=== PATIENT | male | born 1970 | race Caucasian/White ===

== ENCOUNTER 2020-08-17 14:09 | Inpatient (IN) ==
[2020-08-17] MEDS ORDERED: IOPAMIDOL 100 ML BOTTLE IV ONE (14:10)
--- NOTE | 2020-08-17 14:53 | Emergency Department Note ---
SOB HPI General Chief Complaint: Shortness of Breath/Dyspnea Stated Complaint: SOB Time Seen by Provider: 08/17/20 14:18 Source: family Mode of arrival: wheelchair Limitations: physical limitation and other (Hardly talking. Almost seems partially obtunded but severely fatigued might be the cause.) History of Present Illness HPI Narrative: Narrative: This pleasant 51-year-old is quiet. His Makayla accompanies him and answers most of the questions. Begin high-dose pain medication due to metastatic melanoma that has affected him in his lungs, liver, brain, abdomen. The pain in his abdomen has been quite significant and he has had recent dosage increases. He is on both a fentanyl patch as well as hydromorphone tablets. Shortness of breath is become worse in the past 2 days. He walked in. His current patch of fentanyl is 50. He was also tested for Covid 4 days ago where he was seen [facility] or prior to that, and was also diagnosed with possible mild infection in the lungs and put on Levaquin. He currently is on ipilimumab but has had only 1 injection he has previously been on targeted therapy with [employer], etc. his oncologist is Dr. Faust at [facility] in [place]. He no longer is on dexamethasone although did have a dose 4 days ago (or maybe 6 or 7) when he was ill hoping that it would improve his sense of wellbeing etc. It has not done much for him. He has had poor appetite x2 days as well. He is gotten a little bit of a protein shake. He has a history of sarcoidosis and this has inhibited some of the options to be in some of the studies. Original diagnosis of melanoma was in 2016, left calf. He had regional metastases at that time with a couple of lymph nodes positive in the left groin. Related Data Home Medications Medication Instructions Recorded Confirmed carvedilol 3.125 mg tablet 3.125 mg PO BID 08/15/20 08/17/20 dexamethasone 2 mg tablet 2 mg PO QDAY 08/15/20 08/17/20 ipilimumab 50 mg/10 mL (5 mg/mL) 50 mg IV Q3W 08/15/20 08/17/20 intravenous solution levofloxacin 500 mg tablet 500 mg PO Q24H 08/15/20 08/17/20 prochlorperazine maleate 10 mg 10 mg PO Q6H PRN 08/15/20 08/17/20 tablet Previous Rx's Medication Instructions Recorded fentanyl 25 mcg/hr transdermal 1 patch TRANSDERMA Q72H #10 each 08/15/20 patch hydromorphone 4 mg tablet 4 - 8 mg PO Q4H PRN #100 tab 08/15/20 lorazepam 1 mg tablet 1 - 2 mg PO QHS PRN #30 tab 08/15/20 ondansetron 8 mg disintegrating 8 mg PO .Q4-6H PRN #40 tab 08/15/20 tablet ketamine 50 mg/mL injection 50 mg INTRANASAL .COMPLEX PRN #10 08/16/20 solution ml Allergies Allergy/AdvReac Type Severity Reaction Status Date / Time No Known Drug Allergies Allergy Verified 08/15/20 08:10 Review of Systems ROS ROS Narrative: Narrative: No recent fevers chills or sweats Little bit of visual disturbance but this could be due to his medication changes. No sore throat or runny nose No specific cough No specific chest pain just the abdominal pain No diarrhea or constipation. No vomiting just the pain. No hematochezia No dysuria. Some lightheaded dizzy I believe. Usually is a very happy and upbeat type of a person but he, on the pain medications has become rather quiet and sedated. She answers most questions for him although he is able to respond to some intelligently. 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) Anxiety (Chronic) GERD (gastroesophageal reflux disease) (Chronic) Hypertension (Chronic) Melanoma (Chronic) Sarcoidosis (Acute) Medical History (Updated 08/17/20 @ 23:14 by Son Hernandez DO) Anxiety (Chronic) 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) GERD (gastroesophageal reflux disease) (Chronic) Hypertension (Chronic) Melanoma (Chronic) Sarcoidosis (Acute) Surgical History (Updated 08/15/20 @ 10:32 by Elvira Brand) History of surgery (Acute) wide excision of malignant melanoma right lower extremity with sentinel node biopsy x2 Family History (Updated 08/15/20 @ 10:33 by Elvira Brand) Diabetes Family/Other Leukemia Mother Melanoma Sister Hypertension Brother Father Social History Smoking Status: Never smoker Alcohol Intake Frequency: does not drink Substance Use: other Exam Narrative Narrative: Narrative: General Limitations: physical limitation and other (Hardly talking. Almost seems partially obtunded but severely fatigued might be the cause.) General appearance: Present alert (At least awake but not very interactive.), in no apparent distress, lethargic and malaise (Severe) Head Head: Present atraumatic and normocephalic Eye Eye: Present normal appearance and EOMI Neck Neck: Present normal inspection and trachea midline; Absent lymphadenopathy Chest Chest: Present symmetric chest wall rise Respiratory Respiratory: Present decreased breath sounds (Markedly decreased 2[address] on the right.); Absent respiratory distress, rales/crackles, wheezes, stridor and accessory muscle use Cardiovascular Cardiovascular: Present regular rate and tachycardia; Absent systolic murmur and diastolic murmur Adbominal Abdominal: Present soft, distention (Slight or mild) and tenderness (Generalized and diffuse, mild); Absent guarding, rebound and rigidity Extremities Extremities: Absent tenderness, pedal edema and pretibial edema Neurological Neurological: Present other (Difficult to assess due to patient's severe malaise and not wanting to talk. Extraocular muscles are intact. Muscles of facial expression are intact. Patient moves all extremities ambulated in.) Psychiatric Psychiatric: Present depressed, suicidal ideation, serious and poor eye contact (Quite a bit of the time.); Absent agitated and anxious Skin Skin: Present warm (WNL), dry and pallor; Absent cyanosis Course Vital Signs Vital signs: Vital Signs Temperature 96.8 F L 08/17/20 14:10 Pulse Rate 130 H 08/17/20 14:10 Respiratory Rate 22 08/17/20 14:10 Blood Pressure 146/96 08/17/20 14:10 Pulse Oximetry (%) 85 L 08/17/20 14:10 Temperature 96.8 F L 08/17/20 14:10 Pulse Rate 113 H 08/17/20 22:16 Respiratory Rate 14 08/17/20 21:31 Blood Pressure 130/88 08/17/20 22:16 Pulse Oximetry (%) 91 08/17/20 22:16 MDM MDM Narrative Medical decision making narrative: Narrative: 3:32 PM - interviewed and examined. Hypoxic, tachycardic, decreased breath sounds in the right with a history of pleural effusions due to his metastatic melanoma that include brain lung liver abdomen. Most likely this is recurring pleural effusion of significant amount. Because of his abdominal pain as well as the chest will be doing CT scan of the chest abdomen and pelvis. With contrast. Multiple labs including D-dimer also ordered. EKG etc. 4:25 PM - CT scan abdomen: 1. Disseminated hepatic metastases 2. Low density lesion consistent with splenic metastasis. This is increased 3. Malignant ascites. There are peritoneal metastases. There is omental thickening and caking 4. Osseous metastases involving the thoracic and lumbar spine. Osseous metastases in the iliac bones bilaterally. No compression fractures 5. Left inguinal adenopathy CT chest: 1. Large malignant right effusion. Partial right middle lobe and right lower lobe collapse 2. Bilateral hilar and mediastinal adenopathy, unchanged 4:52 PM - lactic acid 1.8. 5:05 PM - CMP with carbon dioxide slightly low at 20 and anion gap slightly elevated at 18.0. BUN is 32, creatinine 1.0. No old ones to compare. Albumin mildly low at 3.1. Troponin normal at less than 0.01. D-dimer and CBC still pending. 5:38 PM - CBC is markedly elevated at 29.4. No anemia. Platelet count is elevated at 441 which is the first time elevated. D-dimer is markedly elevated at 6.69. 5:58 PM - spoke with Dr. Faust, oncologist who reports that patient had dexamethasone he thinks 20 mg last week on Wednesday or Wednesday and thinks that patient's leukocytosis is more likely due to this than actual infectious. He recommends he be hospitalized and have 10 mg of dexamethasone daily and get pain medications under better control, treat underlying general conditions and discharge him in a few days and that he could help follow-up on him as an outpatient on Wednesday, 2 days from now. He says continuing on Levaquin could still be appropriate that he is not immune compromised. He currently is no longer on targeted oral therapy. He is on ipilimumab. Also, Makayla, patient's , pointed out that patient's azithromycin was never started but switched to Levaquin. Today would be about the third day of this treatment but he has not received this antibiotic today. This which was guided by oncology. 6:11 PM - spoke with Radiologist who believes that patient could handle a CTA of the chest to help rule out DVT and that he cannot rule out subsegmental type of multiple PEs as a cause of his tachycardia. I am ordering a CT angiogram of the chest. A liter of IV fluids is already been ordered. Levaquin ordered. CT angio of the chest did not show any significant subsegmental type of embolic phenomenon. 10:20 PM - spoke with Dr. Faustin who would like to see this patient himself be fore deciding circumstances considering that he sounds rather ill. 10:25 PM - spoke with patient's , Makayla, she and her have not discussed CODE STATUS. Dr. Faustin is present. 10:55 PM - Dr. Faustin will admit this patient. He is spoken with the with a DNR conclusion. Lab Data Result diagrams: 08/17/20 14:43 08/17/20 14:43 Labs: Lab Results 08/17/20 08/17/20 08/17/20 Range/Units 14:43 14:43 14:43 WBC 29.4 H (4.5-11.0) K/mcL RBC 5.10 (4.50-5.90) M/mcL Hgb 15.0 (13.5-16.5) g/dL Hct 45.9 (41.0-55.0) % MCV 90.0 (80.0-100.0) fL MCH 29.4 (26.0-34.0) pg MCHC 32.7 (31.0-36.0) g/dL RDW 12.9 (11.5-14.5) % Plt Count 441 H (140-440) K/mcL MPV 10.2 (7.4-10.4) fL Neut % (Auto) 89.0 H (38.0-78.0) % Lymph % (Auto) 2.8 L (15.0-49.0) % Hart % (Auto) 7.3 (1.0-12.0) % Eos % (Auto) 0.4 (0.0-7.0) % Baso % (Auto) 0.5 (0.0-2.0) % Lymph # (Auto) 0.81 L (1.50-4.80) K/mcL Hart # (Auto) 2.15 H (0.10-0.90) K/mcL Eos # (Auto) 0.12 (0.00-0.70) K/mcL Baso # (Auto) 0.14 (0.00-0.20) K/mcL Absolute Neutrophils 26.14 H (1.80-8.00) K/mcL D-Dimer 6.69 H (0.27-0.50) ug/mL Sodium 133 (133-145) mmol/L Potassium 5.1 (3.3-5.1) mmol/L Chloride 95 L (96-108) mmol/L Carbon Dioxide 20 L (22-30) mmol/L Anion Gap 18.0 H (8.0-16.0) BUN 32 H (6-20) mg/dL Creatinine 1.0 (0.7-1.2) mg/dL POC Creatinine 1.0 (0.6-1.2) mg/dL GFR Calculation 86 Glucose 124 H (70-105) mg/dL Calcium 8.0 L (8.6-10.4) mg/dL Magnesium 2.8 H (1.6-2.5) mg/dL Total Bilirubin 0.6 (0.1-1.0) mg/dL AST 25 (<40) U/L ALT 15 (<40) U/L Alkaline Phosphatase 141 H (39-117) U/L Lactate Dehydrogenase (135-225) U/L Troponin T (<0.03) ng/mL Total Protein 6.5 (5.9-8.4) gm/dL Albumin 3.1 L (3.2-5.2) gm/dL Globulin 3.4 (2.2-3.7) gm/dL Albumin/Globulin Ratio 0.9 L (1.0-2.3) Fluid Source Fluid Color Fluid Appearance Fluid Nucleated Cells /cumm Fluid Neutrophils % Fluid Lymphocytes % Fluid Monocytes % Fluid Glucose mg/dL Fluid Total Protein gm/dL Fluid LDH U/L SARS-CoV-2 (PCR) (Negative) 08/17/20 08/17/20 08/17/20 Range/Units 14:43 17:39 17:40 WBC (4.5-11.0) K/mcL RBC (4.50-5.90) M/mcL Hgb (13.5-16.5) g/dL Hct (41.0-55.0) % MCV (80.0-100.0) fL MCH (26.0-34.0) pg MCHC (31.0-36.0) g/dL RDW (11.5-14.5) % Plt Count (140-440) K/mcL MPV (7.4-10.4) fL Neut % (Auto) (38.0-78.0) % Lymph % (Auto) (15.0-49.0) % Hart % (Auto) (1.0-12.0) % Eos % (Auto) (0.0-7.0) % Baso % (Auto) (0.0-2.0) % Lymph # (Auto) (1.50-4.80) K/mcL Hart # (Auto) (0.10-0.90) K/mcL Eos # (Auto) (0.00-0.70) K/mcL Baso # (Auto) (0.00-0.20) K/mcL Absolute Neutrophils (1.80-8.00) K/mcL D-Dimer (0.27-0.50) ug/mL Sodium (133-145) mmol/L Potassium (3.3-5.1) mmol/L Chloride (96-108) mmol/L Carbon Dioxide (22-30) mmol/L Anion Gap (8.0-16.0) BUN (6-20) mg/dL Creatinine (0.7-1.2) mg/dL POC Creatinine (0.6-1.2) mg/dL GFR Calculation Glucose (70-105) mg/dL Calcium (8.6-10.4) mg/dL Magnesium (1.6-2.5) mg/dL Total Bilirubin (0.1-1.0) mg/dL AST (<40) U/L ALT (<40) U/L Alkaline Phosphatase (39-117) U/L Lactate Dehydrogenase 957 H (135-225) U/L Troponin T < 0.01 (<0.03) ng/mL Total Protein (5.9-8.4) gm/dL Albumin (3.2-5.2) gm/dL Globulin (2.2-3.7) gm/dL Albumin/Globulin Ratio (1.0-2.3) Fluid Source Fluid Color Fluid Appearance Fluid Nucleated Cells /cumm Fluid Neutrophils % Fluid Lymphocytes % Fluid Monocytes % Fluid Glucose mg/dL Fluid Total Protein 3.5 gm/dL Fluid LDH 1898 U/L SARS-CoV-2 (PCR) (Negative) 08/17/20 08/17/20 08/17/20 Range/Units 17:40 18:23 18:37 WBC (4.5-11.0) K/mcL RBC (4.50-5.90) M/mcL Hgb (13.5-16.5) g/dL Hct (41.0-55.0) % MCV (80.0-100.0) fL MCH (26.0-34.0) pg MCHC (31.0-36.0) g/dL RDW (11.5-14.5) % Plt Count (140-440) K/mcL MPV (7.4-10.4) fL Neut % (Auto) (38.0-78.0) % Lymph % (Auto) (15.0-49.0) % Hart % (Auto) (1.0-12.0) % Eos % (Auto) (0.0-7.0) % Baso % (Auto) (0.0-2.0) % Lymph # (Auto) (1.50-4.80) K/mcL Hart # (Auto) (0.10-0.90) K/mcL Eos # (Auto) (0.00-0.70) K/mcL Baso # (Auto) (0.00-0.20) K/mcL Absolute Neutrophils (1.80-8.00) K/mcL D-Dimer (0.27-0.50) ug/mL Sodium (133-145) mmol/L Potassium (3.3-5.1) mmol/L Chloride (96-108) mmol/L Carbon Dioxide (22-30) mmol/L Anion Gap (8.0-16.0) BUN (6-20) mg/dL Creatinine (0.7-1.2) mg/dL POC Creatinine (0.6-1.2) mg/dL GFR Calculation Glucose (70-105) mg/dL Calcium (8.6-10.4) mg/dL Magnesium (1.6-2.5) mg/dL Total Bilirubin (0.1-1.0) mg/dL AST (<40) U/L ALT (<40) U/L Alkaline Phosphatase (39-117) U/L Lactate Dehydrogenase (135-225) U/L Troponin T (<0.03) ng/mL Total Protein (5.9-8.4) gm/dL Albumin (3.2-5.2) gm/dL Globulin (2.2-3.7) gm/dL Albumin/Globulin Ratio (1.0-2.3) Fluid Source Pleural Fluid Color [place] Fluid Appearance Clear Fluid Nucleated Cells 615 /cumm Fluid Neutrophils 34 % Fluid Lymphocytes 8 % Fluid Monocytes 58 % Fluid Glucose 101 mg/dL Fluid Total Protein gm/dL Fluid LDH U/L SARS-CoV-2 (PCR) Negative (Negative) Discharge Plan Patient/Caregiver Discharge Instructions Pt seen by [employer] only: No Clinical Impression: Pleural effusion, Sinus tachycardia, Weakness generalized, Medication side effect, Hypoxia, DNR (do not resuscitate) Elevated WBC count Qualifiers: Leukocytosis type: unspecified Qualified Code(s): D72.829 - Elevated white b lood cell count, unspecified Patient Disposition: Xfer As Inpt ([facility]) Condition: Fair Follow up with: Tania aFy MD [Physician] - No,PCP [Primary Care Provider] - Prescriptions: No Action ketamine 50 mg/mL solution 50 mg INTRANASAL .COMPLEX PRN (Reason: pain) Qty: 10 RF: 2 Yervoy 50 mg/10 mL (5 mg/mL) solution 50 mg IV Q3W RF: 0 prochlorperazine maleate 10 mg tablet 10 mg PO Q6H PRN (Reason: other) RF: 0 levofloxacin 500 mg tablet 500 mg PO Q24H RF: 0 dexamethasone 2 mg tablet 2 mg PO QDAY RF: 0 carvedilol 3.125 mg tablet 3.125 mg PO BID RF: 0 ondansetron 8 mg tablet,disintegrating 8 mg PO .Q4-6H PRN (Reason: nausea and vomiting) Qty: 40 RF: 3 fentanyl [Duragesic] 25 mcg/hr patch 72 hour 1 patch TRANSDERMA Q72H Qty: 10 RF: 0 hydromorphone [Dilaudid] 4 mg tablet 4 - 8 mg PO Q4H PRN (Reason: pain) Qty: 100 RF: 0 lorazepam [Ativan] 1 mg tablet 1 - 2 mg PO QHS PRN (Reason: insomnia) Qty: 30 RF: 3
--- NOTE | 2020-08-17 15:47 | Cat Scan Report ---
INDICATION: dyspnea, recurrent pl effus, decrsd breath s R history of malignant melanoma COMPARISON: Previous chest x-ray dated 04/24/2020. Previous PET CT scan dated 04/24/2020. Previous CT scans dated 04/09/2020, 10/18/2019 TECHNIQUE: Axial contrast enhanced images through the chest. Sagittally and coronally reformatted images. MIP reformatted images. 90ml Isovue 370 injected intravenously. FINDINGS: Patient has a history of disseminated metastatic melanoma and large malignant right pleural effusion Lungs:6 mm noncalcified left upper lobe nodule, image 38. This is unchanged. There are small pleural-based nodular densities which appear stable. Findings may be due to mild volume loss but pleural metastases are possible. There is no significant left pleural effusion. Right upper lobe is aerated. There is collapse of the right lower lobe and portion of the right middle lobe. Mediastinum, vascular:There is mediastinal lymphadenopathy. There is mild pretracheal adenopathy. There are prominent perivascular lymph nodes. There is bilateral hilar adenopathy, left worse than right. There is a subcarinal density consistent with a pathologic node. Findings are essentially unchanged. Heart:No cardiomegaly. No pericardial effusion. No significant coronary artery calcification Pleura:Large right pleural effusion. This is a recurrent effusion. There is extensive right pleural-based abnormality consistent with pleural carcinomatosis and malignant effusion. Axilla, supraclavicular regions, chest wall:No pathologic axillary or supraclavicular adenopathy. Musculoskeletal:No thoracic compression fracture or lytic lesion. No sternal or rib lesion Upper Abdomen:Abdominal and pelvic CT scans were performed and will be described in a separate dictation IMPRESSION: 1. Large malignant right effusion. Partial right middle lobe and right lower lobe collapse 2. Bilateral hilar and mediastinal adenopathy, unchanged The exam was performed using radiation dose optimization techniques including, but not limited to, automated exposure control, adjustment of the mA and/or kV according to patient size and use of iterative reconstruction technique. Interpreted and Authenticated by: Calos Martinez 08/17/20
--- NOTE | 2020-08-17 16:02 | Cat Scan Report ---
INDICATION: severe abd pain; mets melanoma COMPARISON: Previous PET/CT scan dated 07/25/2020. Previous abdominal and pelvic CT scan dated 04/23/2020 TECHNIQUE: Axial images were obtained through the abdomen and pelvis. Sagittally and coronally reformatted images. 90 mL Isovue 370 injected intravenously. FINDINGS: Lung bases:Malignant right pleural effusion with right lower lobe collapse Liver:Disseminated hepatic metastases. No definite interval change Gallbladder, bilary:There is at least one calcified gallstone. No dilated bile ducts Spleen:10 mm low-density lesion in the central spleen. This is larger than on previous examination and is consistent with a splenic metastasis. Pancreas:No pancreatic mass. No peripancreatic abnormality Adrenal glands:Negative Kidneys, ureters, bladder:No solid or cystic renal mass. No hydronephrosis. No obstructing calculi. There is no hydroureter. No ureteral stone No bladder calculi or detectable mass Gastrointestinal:No detectable colonic mass. There is no diverticulitis. Small bowel is negative. No mechanical small bowel obstruction. Moderately distended fluid-filled stomach Appendix: The appendix is negative Vascular:Negative abdominal aorta. Superior mesenteric artery and celiac trunk are normal. Normal opacification of the inferior mesenteric artery Lymphatic:No retroperitoneal adenopathy. There are multiple mesenteric lymph nodes which are of indeterminate significance. There are enlarged left inguinal lymph nodes Mesentery, peritoneum: There is moderate ascites. Appearance is consistent with malignant ascites. There are peritoneal masses. There is extensive omental thickening and caking. Reproductive:Prostate is not significantly enlarged Musculoskeletal:Heterogeneous trabecula with areas of lytic and sclerotic metastases in the thoracic and lumbar spine. No pathologic compression fracture. Probable metastases to both iliac bones. There is a sclerotic focus in the left pubic bone. No abdominal wall or inguinal hernia IMPRESSION: 1. Disseminated hepatic metastases 2. Low density lesion consistent with splenic metastasis. This is increased 3. Malignant ascites. There are peritoneal metastases. There is omental thickening and caking 4. Osseous metastases involving the thoracic and lumbar spine. Osseous metastases in the iliac bones bilaterally. No compression fractures 5. Left inguinal adenopathy The exam was performed using radiation dose optimization techniques including, but not limited to, automated exposure control, adjustment of the mA and/or kV according to patient size and use of iterative reconstruction technique. Interpreted and Authenticated by: Calos Martinez 08/17/20
[2020-08-17 16:56] LABS: ALT/SGPT 15 U/L (<40); AST/SGOT 25 U/L (<40); Albumin 3.1 gm/dL (3.2-5.2); Albumin/Globulin Ratio 0.9 (1.0-2.3); Alkaline Phosphatase 141 U/L (39-117); Bilirubin,Total 0.6 mg/dL (0.1-1.0); Blood Urea Nitrogen 32 mg/dL (6-20); Carbon Dioxide 20 mmol/L (22-30); Chloride 95 mmol/L (96-108); Globulin 3.4 gm/dL (2.2-3.7); Glomerular Filtration Rate 86; Glucose 124 mg/dL (70-105)
[2020-08-17 17:06] LABS: Basophils # (Auto) 0.14 K/mcL (0.00-0.20); Basophils % (Auto) 0.5 % (0.0-2.0); Eosinophils # (Auto) 0.12 K/mcL (0.00-0.70); Eosinophils % (Auto) 0.4 % (0.0-7.0); Hematocrit 45.9 % (41.0-55.0); Lymphocytes # (Auto) 0.81 K/mcL (1.50-4.80); Lymphocytes % (Auto) 2.8 % (15.0-49.0); Mean Corpuscular HGB Conc 32.7 g/dL (31.0-36.0); Mean Platelet Volume 10.2 fL (7.4-10.4); Monocytes # (Auto) 2.15 K/mcL (0.10-0.90); Monocytes % (Auto) 7.3 % (1.0-12.0); Platelet Count 441 K/mcL (140-440); Red Cell Distribution Width 12.9 % (11.5-14.5); WBC 29.4 K/mcL (4.5-11.0)
[2020-08-17] MEDS ORDERED: 0.9 % SODIUM CHLORIDE 1,000 ML IV ONE (17:34)
--- NOTE | 2020-08-17 17:56 | Ultrasound Report ---
INDICATION: large right pleural effusion TECHNIQUE: Informed consent was obtained. Discussed the procedure as well as potential risks complications including risk of pneumothorax. Large right pleural effusion was localized with ultrasound. Routine ChloraPrep skin cleansing. 1% lidocaine was injected. 6 Romanian safety centesis set was utilized. 1.7 L of frankly bloody fluid was removed. Postprocedure chest x-ray is pending IMPRESSION: 1. Ultrasound-guided right thoracentesis 2. 1.7 L of bloody fluid removed Interpreted and Authenticated by: Calos Martinez 08/17/20
[2020-08-17] MEDS ORDERED: LEVOFLOXACIN 500 MG/100 ML BAG IV ONE (18:16)
--- NOTE | 2020-08-17 18:39 | XRay Report ---
INDICATION: Post thoracentesis TECHNIQUE: AP portable semiupright chest x-ray COMPARISON: Most recent previous chest x-ray is dated 04/24/2020. That chest x-ray was performed after right thoracentesis FINDINGS: Lungs:Bilateral parenchymal infiltrates of bibasilar predominance. Heart, vascular:No significant cardiomegaly. Pulmonary vascularity is normal. No pulmonary edema or pulmonary congestion Mediastinum, pratibha:Previous CT scans demonstrate mediastinal and hilar adenopathy Pleura:Small residual right pleural effusion. No postthoracentesis pneumothorax Skeletal:Negative. IMPRESSION: No pneumothorax following right thoracentesis Interpreted and Authenticated by: Calos Martinez 08/17/20
--- NOTE | 2020-08-17 19:00 | Cat Scan Report ---
INDICATION: tachycardia; elev d-dimer. Metastatic melanoma COMPARISON: Previous CT scan dated 08/17/2020 TECHNIQUE: Axial images obtained through the chest. 55ml Isovue 370 injected intravenously, and scanning was performed during pulmonary arterial phase. Sagittally and coronally reformatted images were obtained. MIP reformatted images. FINDINGS: Lungs:Left lung is unchanged. No new parenchymal infiltrate or mass. Interval thoracentesis with removal of 1.7 mm bloody right pleural fluid. There is partial reexpansion of the right lung. No discrete pulmonary parenchymal mass. There is right lower lobe infiltrate and residual volume loss. Is not excluded including covid pneumonia. Mediastinum, vascular:Main pulmonary artery, right pulmonary artery, left pulmonary artery are negative. No intraluminal filling defects. No lobar, segmental, or subsegmental emboli. Thoracic aorta is negative. No aneurysmal dilatation Mediastinal and bilateral hilar adenopathy unchanged Heart:No cardiomegaly. No pericardial effusion. Pleura:Small residual right pleural effusion. There is small left effusion. Axilla, supraclavicular regions, chest wall:No pathologic axillary or supraclavicular adenopathy. Musculoskeletal:Sclerotic and lytic lesions in the thoracic spine and sternum. No cortical destruction. No pathologic fracture Upper Abdomen:There is moderate ascites. There are are disseminated hepatic metastases. There is a focal lesion within the spleen IMPRESSION: 1. Negative pulmonary CTA. No pulmonary embolism 2. Small residual right pleural effusion. Partial reexpansion of the right lower lobe and middle lobe 3. Right lung infiltrates. Pneumonia is not excluded including covid 4. Disseminated hepatic metastases. Skeletal metastases. The exam was performed using radiation dose optimization techniques including, but not limited to, automated exposure control, adjustment of the mA and/or kV according to patient size and use of iterative reconstruction technique. Interpreted and Authenticated by: Calos Martinez 08/17/20
[2020-08-17] MEDS ORDERED: DEXAMETHASONE 10 MG/ML VIAL IV ONE (19:42)
[2020-08-17] MEDS ORDERED: 0.9 % SODIUM CHLORIDE 500 ML IV ONE (20:53)
[2020-08-17 22:41] LABS: Total Protein,Body Fluid 3.5 gm/dL
[2020-08-17 22:43] LABS: Appearance, Body Fluid Clear; Color, Body Fluid Orange; Nucleated Cells,Body Fld 615 /cumm
--- NOTE | 2020-08-17 23:46 | Internal Med History&Physical ---
HPI History of Present Illness Patient information: Note initiated : 08/17/20 at 11:16 pm Service Date, if different from initiated Date: [] Patient: Kailash Ma 50 y/o M admitted on for Shortness of breath. Chief Complaint: [confusion and shortness of breath] History of present illness: Mr. Ma is a 50 year old with a history of metastatic melanoma who presents to the ED for altered mental status and breathing difficulties. The patient recently had a fentanyl patch placed for cancer pain and also is taking oral dilaudid prn for pain. In the ED he was found to have a right pleural effusion-1.7 liters drained in the ED. Pleural effusion is exudative per lights criteria, probably malignant from melanoma. Other pertinent workup shows a leukocytosis of uncertain etiology, infectious vs steroids. The patient has been taking dexamethasone per his oncologists orders. He was recently seen at [facility] and prescribed levofloxacin for pneumonia. The patient is afebrile, vitals are notable for hypoxia for which the patient is treated with nasal canula oxygen. The patient does not currently have capacity due to encephalopathy, his would like the patient to be admitted to [facility], we discussed code status for the patient. She wants the patient to be DNR/DNI. ROS positive for fatigue, sweats, pleuritic chest pain, RUQ abdominal pain, confusion. Other review of systems negative. Constitutional Constitutional: Present fatigue, lethargy and night sweats; Absent chills EENT Additional comments: dry mouth Cardiovascular Additional comments: pleuritic chest pain Respiratory Respiratory: Present dyspnea; Absent cough Gastrointestinal Gastrointestinal: Present abdominal pain, constipation and nausea Musculoskeletal Musculoskeletal: Present as per HPI Neurological Neurological: Present as per HPI PFSH PFSH All Active Problems (Updated 08/17/20 @ 23:14 by Son Hernandez DO) Pleural effusion (Acute) Sinus tachycardia (Acute) Weakness generalized (Acute) Medication side effect (Acute) Elevated WBC count (Acute) Hypoxia (Acute) DNR (do not resuscitate) (Acute) 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) Anxiety (Chronic) GERD (gastroesophageal reflux disease) (Chronic) Hypertension (Chronic) Melanoma (Chronic) Sarcoidosis (Acute) Medical History (Updated 08/17/20 @ 23:14 by Son Hernandez DO) Anxiety (Chronic) 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) GERD (gastroesophageal reflux disease) (Chronic) Hypertension (Chronic) Melanoma (Chronic) Sarcoidosis (Acute) Surgical History (Updated 08/15/20 @ 10:32 by Elvira Brand) History of surgery (Acute) wide excision of malignant melanoma right lower extremity with sentinel node biopsy x2 Family History (Updated 08/15/20 @ 10:33 by Elvira Brand) Mother Leukemia Sister Melanoma Brother Hypertension Father Hypertension Family/Other Diabetes Social History (Updated 08/15/20 @ 10:34 by Elvira Brand) marital status: education level: high school occupational status: employed occupation: self-employed smoking status: Never smoker alcohol intake frequency: does not drink substance use type: other details: recreational/social MEDS/ALLERGIES Home Medications and Allergies Home Medications Medication Instructions Recorded Confirmed Type carvedilol 3.125 mg tablet 3.125 mg PO BID 08/15/20 08/17/20 History dexamethasone 2 mg tablet 2 mg PO QDAY 08/15/20 08/17/20 History fentanyl 25 mcg/hr transdermal 1 patch TRANSDERMA Q72H #10 each 08/15/20 08/17/20 Rx patch hydromorphone 4 mg tablet 4 - 8 mg PO Q4H PRN #100 tab 08/15/20 08/17/20 Rx ipilimumab 50 mg/10 mL (5 mg/mL) 50 mg IV Q3W 08/15/20 08/17/20 History intravenous solution levofloxacin 500 mg tablet 500 mg PO Q24H 08/15/20 08/17/20 History lorazepam 1 mg tablet 1 - 2 mg PO QHS PRN #30 tab 08/15/20 08/17/20 Rx ondansetron 8 mg disintegrating 8 mg PO .Q4-6H PRN #40 tab 08/15/20 08/17/20 Rx tablet prochlorperazine maleate 10 mg 10 mg PO Q6H PRN 08/15/20 08/17/20 History tablet ketamine 50 mg/mL injection 50 mg INTRANASAL .COMPLEX PRN #10 08/16/20 08/17/20 Rx solution ml Allergies Allergy/AdvReac Type Severity Reaction Status Date / Time No Known Drug Allergies Allergy Verified 08/15/20 08:10 EXAM Constitutional Vitals: Temp Pulse Resp BP Pulse Ox 96.8 F L 113 H 14 130/88 91 12/12/20 14:10 08/17/20 22:16 08/17/20 21:31 08/17/20 22:16 08/17/20 22:16 Head Head exam: Present atraumatic and normal inspection Eye Eye exam: Present PERRL; Absent scleral icterus Neck Neck exam: Present full ROM; Absent lymphadenopathy Respiratory Respiratory exam: Absent accessory muscle use, rales and respiratory distress Cardiovascular Cardiovascular exam: Present tachycardia; Absent irregular rhythm GI/Abdominal GI/Abdominal exam: Present distended and firm; Absent guarding Expanded GI/Abdominal Exam GI/Abdominal exam: Absent ascites Extremities Exam Extremities exam: Present full ROM and normal inspection; Absent joint swelling Neurological Exam Neurological exam: Present altered and CN II-XII intact Psychiatric Psychiatric exam: Absent agitated and anxious Skin Skin exam: Present normal color; Absent dry and erythema DATA Data Completed and Pending Labs: Labs from last 24 hours 08/17/20 08/17/20 08/17/20 18:37 18:23 17:40 WBC RBC Hgb Hct MCV MCH MCHC RDW Plt Count MPV Neut % (Auto) Lymph % (Auto) [place] % (Auto) Eos % (Auto) Baso % (Auto) Lymph # (Auto) [place] # (Auto) Eos # (Auto) Baso # (Auto) Absolute Neutrophils D-Dimer Sodium Potassium Chloride Carbon Dioxide Anion Gap BUN Creatinine POC Creatinine GFR Calculation Glucose Calcium Magnesium Total Bilirubin AST ALT Alkaline Phosphatase Lactate Dehydrogenase Troponin T Total Protein Albumin Globulin Albumin/Globulin Ratio Fluid Source Pleural Fluid Color [place] Fluid Appearance Clear Fluid RBC Pending Fluid Nucleated Cells 615 Fluid Neutrophils 34 Fluid Lymphocytes 8 Fluid Monocytes 58 Fluid Glucose 101 Fluid Total Protein Fluid LDH SARS-CoV-2 (PCR) Negative 08/17/20 08/17/20 08/17/20 17:40 17:39 14:43 WBC RBC Hgb Hct MCV MCH MCHC RDW Plt Count MPV Neut % (Auto) Lymph % (Auto) [place] % (Auto) Eos % (Auto) Baso % (Auto) Lymph # (Auto) [place] # (Auto) Eos # (Auto) Baso # (Auto) Absolute Neutrophils D-Dimer Sodium Potassium Chloride Carbon Dioxide Anion Gap BUN Creatinine POC Creatinine GFR Calculation Glucose Calcium Magnesium Total Bilirubin AST ALT Alkaline Phosphatase Lactate Dehydrogenase 957 H Troponin T < 0.01 Total Protein Albumin Globulin Albumin/Globulin Ratio Fluid Source Fluid Color Fluid Appearance Fluid RBC Fluid Nucleated Cells Fluid Neutrophils Fluid Lymphocytes Fluid Monocytes Fluid Glucose Fluid Total Protein 3.5 Fluid LDH 1898 SARS-CoV-2 (PCR) 08/17/20 08/17/20 08/17/20 14:43 14:43 14:43 WBC 29.4 H RBC 5.10 Hgb 15.0 Hct 45.9 MCV 90.0 MCH 29.4 MCHC 32.7 RDW 12.9 Plt Count 441 H MPV 10.2 Neut % (Auto) 89.0 H Lymph % (Auto) 2.8 L [place] % (Auto) 7.3 Eos % (Auto) 0.4 Baso % (Auto) 0.5 Lymph # (Auto) 0.81 L [place] # (Auto) 2.15 H Eos # (Auto) 0.12 Baso # (Auto) 0.14 Absolute Neutrophils 26.14 H D-Dimer 6.69 H Sodium 133 Potassium 5.1 Chloride 95 L Carbon Dioxide 20 L Anion Gap 18.0 H BUN 32 H Creatinine 1.0 POC Creatinine 1.0 GFR Calculation 86 Glucose 124 H Calcium 8.0 L Magnesium 2.8 H Total Bilirubin 0.6 AST 25 ALT 15 Alkaline Phosphatase 141 H Lactate Dehydrogenase Troponin T Total Protein 6.5 Albumin 3.1 L Globulin 3.4 Albumin/Globulin Ratio 0.9 L Fluid Source Fluid Color Fluid Appearance Fluid RBC Fluid Nucleated Cells Fluid Neutrophils Fluid Lymphocytes Fluid Monocytes Fluid Glucose Fluid Total Protein Fluid LDH SARS-CoV-2 (PCR) Preliminary micro results at discharge 08/17/20 18:25 Gram Stain - Preliminary Pleural Fluid Body Fluid Culture - Preliminary A/P Narrative A/P Narrative: Assessment: 50 year old male with a history of metastatic melanoma, hypertension, presents to the ED for encephalopathy likely related to recent increase in opioids for cancer pain (fentanyl patch) and dyspnea probably secondary to a right pleural effusion for which 1.7 liters was removed in the ED. The patient was also recently diagnosed with pneumonia for which he has been taking levofloxacin. Admitting with decreased opioids and monitoring of respiratory status. #Encephalopathy - Probably mostly from the recent second fentanyl patch placement, one patch removed in the ED. Will continue with the current one fentanyl patch and monitor, hold home dilaudid prn and other opioids for now. Other possibilities include metabolic encephalopathy, septic encephalopathy, and mass effect from brain mets - checking blood cultures, UA, ammonia. Consider MRI [place]en. #Acute hypoxic respiratory failure - Likely a combination of the pleural effusion and pneumonia, no evidence of PE on CTA chest. Drained 1.7 liters of pleural effusion in the ED, follow workup. Incentive spirometry, oxygen supplementation as needed. #Pneumonia - Continue home levofloxacin. Nasal MRSA screen. #Hypertension - Home home Coreg for now. #Metastatic melanoma - This is the patient's most serious medical problem by far, currently managed by an oncology group in [place] and treated with biologic chemotherapy. #DVT prophylaxis - Lovenox SQ. #Code status - DNR/DNI. Time Spent With Patient Time: Total time spent is greater than 50% in coordination of care (as documented) at patient's floor/unit and/or counseling patient: Total time spent with greater than 50% in coordination of care (as documented) at patient's floor/unit and/or counseling patient:: Greater than 35 minutes
[2020-08-18] MEDS ORDERED: LEVOFLOXACIN 500 MG TABLET PO SCH (00:33)
[2020-08-18] MEDS ORDERED: ONDANSETRON 4 MG/2 ML VIAL IV PRN (00:33)
[2020-08-18] MEDS ORDERED: fentaNYL 25 MCG PATCH TOPICAL SCH (00:33)
[2020-08-18] MEDS: 0.9 % SODIUM CHLORIDE 1,000 ML IV SCH ×5 (00:51→21:52)
[2020-08-18] MEDS: 0.9 % SODIUM CHLORIDE 10 ML SYRINGE IV SCH ×3 (05:03→20:25)
[2020-08-18 06:06] LABS: Appearance,Urine CLEAR (Clear); Bilirubin,Urine Negative (Negative); Color,Urine AMBER; Culture Indicated,Urine No; Glucose,Urine (UA) Negative (Negative); Ketones,Urine 5 mg/dL (Negative); Leukocyte Esterase,Urine Negative /ug (Negative); Mucus,Urine FEW /hpf; Nitrate,Urine Negative (Negative); Protein,Urine 30 mg/dL (Negative); Specific Gravity,Urine > 1.060 (1-1.035); Urine Blood >=1.0 mg/dL (Negative); Urine RBC > 182 /hpf (0-1); Urine Squamous Epithelial Cell < 1 /hpf (0-4); Urine WBC 0 /hpf (0-4)
[2020-08-18] MEDS: DOCUSATE SODIUM 100 MG CAPSULE PO SCH ×2 (09:19→20:23)
[2020-08-18] MEDS: LEVOFLOXACIN 500 MG TABLET PO SCH (09:19)
[2020-08-18] MEDS: DEXAMETHASONE 4 MG TABLET PO SCH (09:20)
[2020-08-18] MEDS: ENOXAPARIN 40 MG/0.4 ML SYRINGE SQ SCH (09:24)
[2020-08-18 09:32] LABS: ALT/SGPT 10 U/L (<40); AST/SGOT 21 U/L (<40); Albumin 2.7 gm/dL (3.2-5.2); Albumin/Globulin Ratio 0.8 (1.0-2.3); Alkaline Phosphatase 140 U/L (39-117); Bilirubin,Total 0.5 mg/dL (0.1-1.0); Blood Urea Nitrogen 35 mg/dL (6-20); Calcium 7.4 mg/dL (8.6-10.4); Carbon Dioxide 21 mmol/L (22-30); Chloride 100 mmol/L (96-108); Globulin 3.5 gm/dL (2.2-3.7); Glomerular Filtration Rate 86; Glucose 152 mg/dL (70-105)
[2020-08-18 10:57] LABS: Eosinophils % (Manual) 1 % (0-7); Hematocrit 42.1 % (41.0-55.0); Hemoglobin 13.7 g/dL (13.5-16.5); Lymphocytes % 4 % (15-49); Mean Cell Volume 91.1 fL (80.0-100.0); Mean Corpuscular HGB Conc 32.5 g/dL (31.0-36.0); Mean Platelet Volume 10.2 fL (7.4-10.4); Monocytes % (Manual) 4 % (1-12); Myelocytes % 1 %; Platelet Count 356 K/mcL (140-440); Platelet Estimate NORMAL (Normal); RBC 4.62 M/mcL (4.50-5.90); RBC Morphology NORMAL (Normal); Red Cell Distribution Width 13.2 % (11.5-14.5); Segmented Neutrophils % 90 % (38-78); WBC 20.7 K/mcL (4.5-11.0)
[2020-08-18] MEDS ORDERED: 0.9 % SODIUM CHLORIDE 1,000 ML IV ONE (12:24)
--- NOTE | 2020-08-18 12:37 | Internal Med Progress Note ---
SUBJECTIVE Subjective Patient information: Note initiated : 08/18/20 at 12:26 pm Service Date, if different from initiated Date: [] Patient: Kailash Ma 50 y/o M admitted on 08/18/20 for Shortness of breath. Chief Complaint: [encephalopathy] Constitutional Vitals: Vital Signs Temp Pulse Resp BP Pulse Ox 97.8 F 99 H 18 134/82 93 08/18/20 12:00 08/18/20 12:00 08/18/20 12:00 08/18/20 12:00 08/18/20 12:00 Period Temp Pulse Resp BP Sys/[place] Pulse Ox Last 24 Hr 96.8 F-99.1 F 99-130 12- 118-156/80-111 85-97 Intake and Output 08/17/20 08/18/20 08/18/20 21:59 05:59 13:59 Intake Total 1100 1460 1350 Output Total 525 625 Balance 1100 935 725 Weight 81.647 kg 83.416 kg Intake & Output: Intake & Output 08/17/20 08/18/20 08/18/20 21:59 05:59 13:59 Intake Total 1100 1460 1350 Output Total 525 625 Balance 1100 935 725 Weight 81.647 kg 83.416 kg Intake: IV 9182 279 0074 Sodium Chloride 0.9% 1,000 ml @ 1000 1000 125 mls/hr IV .Q8H [facility] Rx#: [id number] Sodium Chloride 0.9% 500 ml @ 500 Wide Open IV BOLUS ONE Rx#: [id number] Oral 960 350 Output: Void Amount 525 625 Other: Meal Breakfast Percent of Meal Consumed 50% Feeding Ability Independent Urine Appearance Clear Urine Color [place] Tea Colored [place] Urine Odor Normal Head Head exam: Present atraumatic and normal inspection Eye Eye exam: Present PERRL; Absent scleral icterus Pupils: Absent fixed and unequal ENT ENT exam: Present mucous membranes dry Neck Neck exam: Present full ROM Respiratory Respiratory exam: Absent accessory muscle use and respiratory distress Cardiovascular Cardiovascular exam: Present tachycardia; Absent bradycardia and irregular rhythm GI/Abdominal GI/Abdominal exam: Present distended; Absent guarding Extremities Exam Extremities exam: Present full ROM and normal inspection Neurological Exam Neurological exam: Present alert, altered and CN II-XII intact; Absent motor sensory deficit Psychiatric Psychiatric exam: Present anxious; Absent agitated Skin Skin exam: Present normal color and warm; Absent rash OBJ DATA Labs CBC & Chem 7: 08/18/20 06:11 08/18/20 06:11 Labs: Abnormal Lab Results 08/18/20 08/18/20 08/18/20 06:11 06:11 04:30 WBC 20.7 H Plt Count Neut % (Auto) Lymph % (Auto) Lymph # (Auto) [place] # (Auto) Seg Neutrophils % 90 H Lymphocytes % 4 L Absolute Neutrophils D-Dimer Potassium 5.3 H Chloride Carbon Dioxide 21 L Anion Gap BUN 35 H Glucose 152 H Calcium 7.4 L Magnesium Alkaline Phosphatase 140 H Lactate Dehydrogenase Albumin 2.7 L Albumin/Globulin Ratio 0.8 L Ur Specific [place] > 1.060 H Urine Protein 30 A Urine Ketones 5 A Urine Occult Blood >=1.0 A Urine Urobilinogen 4.0 A Urine RBC > 182 H Urine Mucus Few A 08/17/20 08/17/20 08/17/20 17:40 14:43 14:43 WBC Plt Count Neut % (Auto) Lymph % (Auto) Lymph # (Auto) [place] # (Auto) Seg Neutrophils % Lymphocytes % Absolute Neutrophils D-Dimer 6.69 H Potassium Chloride 95 L Carbon Dioxide 20 L Anion Gap 18.0 H BUN 32 H Glucose 124 H Calcium 8.0 L Magnesium 2.8 H Alkaline Phosphatase 141 H Lactate Dehydrogenase 957 H Albumin 3.1 L Albumin/Globulin Ratio 0.9 L Ur Specific [place] Urine Protein Urine Ketones Urine Occult Blood Urine Urobilinogen Urine RBC Urine Mucus 08/17/20 14:43 WBC 29.4 H Plt Count 441 H Neut % (Auto) 89.0 H Lymph % (Auto) 2.8 L Lymph # (Auto) 0.81 L [place] # (Auto) 2.15 H Seg Neutrophils % Lymphocytes % Absolute Neutrophils 26.14 H D-Dimer Potassium Chloride Carbon Dioxide Anion Gap BUN Glucose Calcium Magnesium Alkaline Phosphatase Lactate Dehydrogenase Albumin Albumin/Globulin Ratio Ur Specific [place] Urine Protein Urine Ketones Urine Occult Blood Urine Urobilinogen Urine RBC Urine Mucus Meds: Medications Dexamethasone (Decadron) 2 mg PO DAILY [facility] Last Admin: 08/18/20 09:20 Dose: 2 mg Documented by: Docusate Sodium (Colace) 100 mg PO BID [facility] Last Admin: 08/18/20 09:19 Dose: 100 mg Documented by: Enoxaparin Sodium (Lovenox) 40 mg SQ DAILY [facility] Last Admin: 08/18/20 09:24 Dose: 40 mg Documented by: Fentanyl (Duragesic) 25 mcg TOPICAL Q72H [facility] Sodium Chloride (Sodium Chloride 0.9%) 1,000 mls @ 125 mls/hr IV .Q8H [facility] Last Admin: 08/18/20 09:36 Dose: 125 mls/hr Documented by: Sodium Chloride (Sodium Chloride 0.9%) 1,000 mls @ 0 mls/hr IV BOLUS ONE Stop: 08/18/20 12:25 Levofloxacin (Levaquin) 500 mg PO DAILY [facility]; Protocol Last Admin: 08/18/20 09:19 Dose: 500 mg Documented by: Ondansetron HCl (Zofran) 4 mg IV Q6HP PRN PRN Reason: Nausea And Vomiting Senna (Senokot) 2 tab PO HS [facility] Sodium Chloride (Saline Flush) 10 ml IV Q8 [facility] Last Admin: 08/18/20 05:03 Dose: Not Given Documented by: A/P Narrative A/P Narrative: Assessment: 50 year old male with a history of metastatic melanoma, hypertension, presents to the ED for encephalopathy initially felt to be secondary to recent increase in opioids for cancer pain (fentanyl patch) and dyspnea probably secondary to a right pleural effusion for which 1.7 liters was removed in the ED. The patient has a new oxygen requirement, he was recently diagnosed with pneumonia at [facility], currently on levofloxacin. Admitting with decreased opioids and monitoring of respiratory status. COVID PCR not detected. 08/18 Improved cognition but not at baseline, potassium 5.3, still looks dry so will give another NS bolus. MRI brain w and s/o contrast ordered. Repeat potassium in afternoon. #Encephalopathy - Improved after decreasing fentanyl patch (removed one patch) and holding Dilaudid but not at congitive baseline. Ammonia normal, infectious workup pending but WBC down trending now (on levofloxain). Concern for possible brain metastasis from melanoma-MRI brain ordered. #Acute hypoxic respiratory failure - Likely a combination of the pleural effusion and pneumonia, no evidence of PE on CTA chest. Drained 1.7 liters of pleural effusion in the ED, follow workup. Incentive spirometry, oxygen supplementation as needed. #Hyperkalemia - mild, will monitor for now with afternoon lab. #Pneumonia - Continue home levofloxacin. Nasal MRSA screen. #Hypertension - Home home Coreg for now. #Metastatic melanoma - This is the patient's most serious medical problem by far, currently managed by an oncology group in [place] and treated with biologic chemotherapy. Continuing home dexamethasone 2 mg daily. #DVT prophylaxis - Lovenox SQ. #Code status - DNR/DNI. Time Spent With Patient Time: Total time spent is greater than 50% in coordination of care (as documented) at patient's floor/unit and/or counseling patient: Total time spent with greater than 50% in coordination of care (as documented) at patient's floor/unit and/or counseling patient:: Greater than 35 minutes QUALITY VTE Deep Vein Thrombosis/Pulmonary Embolism Present on Admission: No
[2020-08-18] MEDS: ACETAMINOPHEN 650 MG/65 ML BAG IV PRN (19:26)
[2020-08-18] MEDS: SENNOSIDES 1 TABLET PO SCH (20:23)
[2020-08-19] MEDS: ACETAMINOPHEN 650 MG/65 ML BAG IV PRN ×2 (02:36→08:43)
[2020-08-19] MEDS: 0.9 % SODIUM CHLORIDE 10 ML SYRINGE IV SCH ×3 (06:35→21:36)
[2020-08-19] MEDS: 0.9 % SODIUM CHLORIDE 1,000 ML IV SCH (06:58)
[2020-08-19] MEDS: DOCUSATE SODIUM 100 MG CAPSULE PO SCH ×2 (08:05→21:36)
[2020-08-19] MEDS: ENOXAPARIN 40 MG/0.4 ML SYRINGE SQ SCH (08:05)
[2020-08-19] MEDS: LEVOFLOXACIN 500 MG TABLET PO SCH (08:05)
[2020-08-19] MEDS: DEXAMETHASONE 4 MG TABLET PO SCH (08:05)
[2020-08-19 08:26] LABS: ALT/SGPT 12 U/L (<40); AST/SGOT 15 U/L (<40); Albumin 2.7 gm/dL (3.2-5.2); Alkaline Phosphatase 157 U/L (39-117); Bilirubin,Total 0.4 mg/dL (0.1-1.0); Blood Urea Nitrogen 25 mg/dL (6-20); Calcium 7.4 mg/dL (8.6-10.4); Carbon Dioxide 22 mmol/L (22-30); Chloride 100 mmol/L (96-108); Globulin 2.8 gm/dL (2.2-3.7); Glomerular Filtration Rate 102; Glucose 112 mg/dL (70-105)
[2020-08-19 08:44] LABS: Eosinophils % (Manual) 2 % (0-7); Hematocrit 39.7 % (41.0-55.0); Hemoglobin 12.8 g/dL (13.5-16.5); Lymphocytes % 4 % (15-49); Mean Cell Volume 91.1 fL (80.0-100.0); Mean Corpuscular HGB Conc 32.2 g/dL (31.0-36.0); Mean Platelet Volume 9.9 fL (7.4-10.4); Monocytes % (Manual) 4 % (1-12); Platelet Count 297 K/mcL (140-440); Platelet Estimate NORMAL (Normal); RBC 4.36 M/mcL (4.50-5.90); RBC Morphology NORMAL (Normal); Red Cell Distribution Width 12.9 % (11.5-14.5); Segmented Neutrophils % 90 % (38-78); WBC 19.7 K/mcL (4.5-11.0)
--- NOTE | 2020-08-19 08:45 | XRay Report ---
CLINICAL INFORMATION: hypoxia COMPARISON: 08/17/2020 FINDINGS: Moderate cardiomegaly is unchanged. Mediastinum and pulmonary vasculature are normal. Small patchy infiltrates in right mid and both lower lungs show improved aeration since chest x-ray two days ago. Small right pleural effusion has also decreased. IMPRESSION: Small patchy infiltrates in the right mid and both lung bases with small right pleural effusion - improving Interpreted and Authenticated by: Calos Orosco 08/19/20
[2020-08-19] MEDS ORDERED: fentaNYL 25 MCG PATCH TOPICAL SCH (10:00)
[2020-08-19] MEDS ORDERED: LORazepam 2 MG/ML VIAL IV PRN ×2 (10:22→13:17)
[2020-08-19] MEDS ORDERED: GADOBENATE DIMEGLUMINE 20 ML/VIAL IV ONE (11:21)
--- NOTE | 2020-08-19 12:02 | Magnetic Resonance Report ---
CLINICAL INFORMATION: Agitation. Decreased mental status. History of melanoma. COMPARISON: Brain MRI 04/24/2020 TECHNIQUE: Sagittal T1 FLAIR, axial diffusion ADC, T1 FLAIR, T2 FLAIR propeller, T2 propeller gradient, T1 post Magnevist and coronal T1 FLAIR post Magnevist images were acquired. FINDINGS: There are multiple (greater than 100) well-circumscribed homogeneously enhancing nodules widely disseminated throughout the cerebrum, brainstem and cerebellum. There most prominent in the cerebral corticomedullary junction and basal ganglia regions. They range between 4 mm and 9 mm. None of the lesions have incited vasogenic edema, hemorrhage or significant mass effect. Signal void in intracerebral arteries, extra-axial cranial nerves, pituitary orbits are all normal. IMPRESSION: Multiple (greater than 100) well-circumscribed enhancing lesions widely disseminated throughout the cerebrum, brainstem and cerebellum suspicious for marked progression in metastatic disease. History of melanoma is acknowledged Interpreted and Authenticated by: Calos Orosco 08/19/20
[2020-08-19] MEDS: HYDROmorphone 0.5 MG/0.5 ML SYRINGE IV PRN ×3 (13:27→22:26)
[2020-08-19] MEDS: LORazepam 2 MG/ML VIAL IV PRN ×2 (13:37→16:42)
--- NOTE | 2020-08-19 16:52 | Internal Med Progress Note ---
SUBJECTIVE Subjective Patient information: Note initiated : 08/19/20 at 4:39 pm Service Date, if different from initiated Date: [] Patient: Kailash Ma 50 y/o M admitted on 08/18/20 for Shortness of breath. Chief Complaint: [Encephalopathy] Interval history: 50 year old male with a history of metastatic melanoma, hypertension, presents to the ED for encephalopathy initially felt to be secondary to recent increase in opioids for cancer pain (fentanyl patch) and dyspnea probably secondary to a right pleural effusion for which 1.7 liters was removed in the ED. The patient has a new oxygen requirement, he was recently diagnosed with pneumonia at [facility], currently on levofloxacin. Admitting with decreased opioids and monitoring of respiratory status. COVID PCR not detected. 08/18 Improved cognition but not at baseline, potassium 5.3, still looks dry so will give another NS bolus. MRI brain w and s/o contrast ordered. Repeat pot assium in afternoon. 08/19 MRI brain showed numerous lesions consistent with metastatic melanoma, d iscussed with the patient's oncologist today with the patient's present. Unfortunately there is nothing more to offer the patient at this point except end of life care. Exploring hospice options with case management assistance. Constitutional Vitals: Vital Signs Temp Pulse Resp BP Pulse Ox 97.5 F 98 H 18 118/76 92 08/19/20 12:00 08/19/20 12:00 08/19/20 12:00 08/19/20 12:00 08/19/20 12:00 Period Temp Pulse Resp BP Sys/Edmonds Pulse Ox Last 24 Hr 97.4 F-98.8 F 83-98 16-20 118-139/76-90 92-95 Intake and Output 08/19/20 08/19/20 08/19/20 05:59 13:59 21:59 Intake Total 365 465 100 Output Total 425 450 Balance -60 15 100 Weight 86.727 kg Patient Weight 08/20/20 05:59 Weight 86.727 kg Intake & Output: Intake & Output 08/19/20 08/19/20 08/19/20 05:59 13:59 21:59 Intake Total 365 465 100 Output Total 425 450 Balance -60 15 100 Weight 86.727 kg Intake: IV 65 65 Oral 300 400 100 Output: Void Amount 425 450 Other: Meal Lunch Percent of Meal Consumed 0% Feeding Ability Independent Urine Appearance Clear Clear Urine Color Light Peg Light Peg Head Head exam: Present atraumatic and normal inspection Eye Eye exam: Present normal appearance ENT ENT exam: Present mucous membranes moist, normal exam and normal external ear exam Neck Neck exam: Present normal inspection Respiratory Respiratory exam: Present normal respiratory exam Cardiovascular Cardiovascular exam: Present normal rate and rhythm GI/Abdominal GI/Abdominal exam: Present distended and tenderness Back Exam Back exam: Present normal inspection Neurological Exam Neurological exam: Present alert and altered Psychiatric Psychiatric exam: Present agitated Skin Skin exam: Present intact and warm OBJ DATA Labs CBC & Chem 7: 08/19/20 07:21 08/19/20 07:21 Labs: Abnormal Lab Results 08/19/20 08/19/20 08/18/20 07:21 07:21 06:11 WBC 19.7 H RBC 4.36 L Hgb 12.8 L Hct 39.7 L Plt Count Neut % (Auto) Lymph % (Auto) Lymph # (Auto) [place] # (Auto) Seg Neutrophils % 90 H Lymphocytes % 4 L Absolute Neutrophils D-Dimer Potassium 5.2 H Chloride Carbon Dioxide Anion Gap BUN 25 H Glucose 112 H Calcium 7.4 L Magnesium Alkaline Phosphatase 157 H Lactate Dehydrogenase Total Protein 5.5 L Albumin 2.7 L Albumin/Globulin Ratio Ur Specific [place] Urine Protein Urine Ketones Urine Occult Blood Urine Urobilinogen Urine RBC Urine Mucus 08/18/20 08/18/20 08/18/20 06:11 06:11 04:30 WBC 20.7 H RBC Hgb Hct Plt Count Neut % (Auto) Lymph % (Auto) Lymph # (Auto) [place] # (Auto) Seg Neutrophils % 90 H Lymphocytes % 4 L Absolute Neutrophils D-Dimer Potassium 5.3 H Chloride Carbon Dioxide 21 L Anion Gap BUN 35 H Glucose 152 H Calcium 7.4 L Magnesium Alkaline Phosphatase 140 H Lactate Dehydrogenase Total Protein Albumin 2.7 L Albumin/Globulin Ratio 0.8 L Ur Specific [place] > 1.060 H Urine Protein 30 A Urine Ketones 5 A Urine Occult Blood >=1.0 A Urine Urobilinogen 4.0 A Urine RBC > 182 H Urine Mucus Few A 08/17/20 08/17/20 08/17/20 17:40 14:43 14:43 WBC RBC Hgb Hct Plt Count Neut % (Auto) Lymph % (Auto) Lymph # (Auto) [place] # (Auto) Seg Neutrophils % Lymphocytes % Absolute Neutrophils D-Dimer 6.69 H Potassium Chloride 95 L Carbon Dioxide 20 L Anion Gap 18.0 H BUN 32 H Glucose 124 H Calcium 8.0 L Magnesium 2.8 H Alkaline Phosphatase 141 H Lactate Dehydrogenase 957 H Total Protein Albumin 3.1 L Albumin/Globulin Ratio 0.9 L Ur Specific [place] Urine Protein Urine Ketones Urine Occult Blood Urine Urobilinogen Urine RBC Urine Mucus 08/17/20 14:43 WBC 29.4 H RBC Hgb Hct Plt Count 441 H Neut % (Auto) 89.0 H Lymph % (Auto) 2.8 L Lymph # (Auto) 0.81 L [place] # (Auto) 2.15 H Seg Neutrophils % Lymphocytes % Absolute Neutrophils 26.14 H D-Dimer Potassium Chloride Carbon Dioxide Anion Gap BUN Glucose Calcium Magnesium Alkaline Phosphatase Lactate Dehydrogenase Total Protein Albumin Albumin/Globulin Ratio Ur Specific [place] Urine Protein Urine Ketones Urine Occult Blood Urine Urobilinogen Urine RBC Urine Mucus Meds: Medications Dexamethasone (Decadron) 2 mg PO DAILY [facility] Last Admin: 08/19/20 08:05 Dose: 2 mg Documented by: Docusate Sodium (Colace) 100 mg PO BID [facility] Last Admin: 08/19/20 08:05 Dose: 100 mg Documented by: Enoxaparin Sodium (Lovenox) 40 mg SQ DAILY [facility] Last Admin: 08/19/20 08:05 Dose: 40 mg Documented by: Fentanyl (Duragesic) 25 mcg TOPICAL Q72H [facility] Last Admin: 08/19/20 10:52 Dose: 25 mcg Documented by: Hydromorphone HCl (Dilaudid) 0.5 mg IV Q2HP PRN; Protocol PRN Reason: Per Pain Protocol Last Admin: 08/19/20 13:27 Dose: 0.5 mg Documented by: Acetaminophen (Ofirmev) 650 mg in 65 mls @ 130 mls/hr IV Q6HP PRN; Protocol PRN Reason: PAIN/FEVER > 101 Last Infusion: 08/19/20 09:13 Dose: Infused Documented by: Levofloxacin (Levaquin) 500 mg PO DAILY [facility]; Protocol Last Admin: 08/19/20 08:05 Dose: 500 mg Documented by: Lorazepam (Ativan) 0.5 mg IV Q2HP PRN PRN Reason: ANXIETY/SEDATION Last Admin: 08/19/20 13:37 Dose: 0.5 mg Documented by: Ondansetron HCl (Zofran) 4 mg IV Q6HP PRN PRN Reason: Nausea And Vomiting Polyethylene Glycol (Miralax) 17 gm PO DAILY [facility] Senna (Senokot) 2 tab PO HS [facility] Last Admin: 08/18/20 20:23 Dose: 2 tab Documented by: Sodium Chloride (Saline Flush) 10 ml IV Q8 [facility] Last Admin: 08/19/20 13:29 Dose: 10 ml Documented by: A/P Narrative A/P Narrative: Assessment: 50 year old male with a history of metastatic melanoma, hypertension, presents to the ED for encephalopathy initially felt to be secondary to recent increase in opioids for cancer pain (fentanyl patch) but later found to have diffuse metastates to brain which are the likely cause of encephalopathy. Also found to have a right pleural effusion, 1.7 liters was removed in the ED. The patient has a new oxygen requirement, he was recently diagnosed with pneumonia at [facility], currently on levofloxacin. COVID PCR not detected. #Metastatic melanoma #Diffuse brain metastasis #Encephalopathy #Agitation #Abdominal pain secondary to metastatic disease Has received immunotherapy and biologic therapy provided by his oncologist in [place]. Reviewed the MRI results with his oncologist who feels the patient's condition is terminal and recommends end of life care. child and family services worker assisting with exploring hospice options, likely at a SNF in [place]. The patient's will discuss these new findings with family, the patient does not currently have capacity. Ativan prn for agitation, will consider haldol prn. Dialudid prn for pain. #Acute hypoxic respiratory failure - Likely a combination of the pleural effusion and pneumonia, no evidence of PE on CTA chest. Drained 1.7 liters of pleural effusion in the ED, follow workup. Incentive spirometry, oxygen supplementation as needed. #Hyperkalemia - resolved. #Pneumonia - Continue home levofloxacin. Nasal MRSA screen negative. #Hypertension - Home home Coreg for now. #Metastatic melanoma - This is the patient's most serious medical problem by far, currently managed by an oncology group in [place] and treated with biologic chemotherapy. Continuing home dexamethasone 2 mg daily. #DVT prophylaxis - Lovenox SQ. #Code status - DNR/DNI. Time Spent With Patient Time: Total time spent is greater than 50% in coordination of care (as documented) at patient's floor/unit and/or counseling patient: Total time spent with greater than 50% in coordination of care (as documented) at patient's floor/unit and/or counseling patient:: Greater than 35 minutes QUALITY VTE Deep Vein Thrombosis/Pulmonary Embolism Present on Admission: No
[2020-08-19] MEDS: SENNOSIDES 1 TABLET PO SCH (21:36)
[2020-08-20] MEDS: HYDROmorphone 0.5 MG/0.5 ML SYRINGE IV PRN ×7 (02:44→22:40)
[2020-08-20] MEDS: 0.9 % SODIUM CHLORIDE 10 ML SYRINGE IV SCH ×4 (05:14→21:33)
[2020-08-20 07:30] LABS: ALT/SGPT 13 U/L (<40); AST/SGOT 14 U/L (<40); Albumin 2.8 gm/dL (3.2-5.2); Alkaline Phosphatase 208 U/L (39-117); Bilirubin,Total 0.6 mg/dL (0.1-1.0); Blood Urea Nitrogen 20 mg/dL (6-20); Calcium 7.4 mg/dL (8.6-10.4); Carbon Dioxide 21 mmol/L (22-30); Chloride 102 mmol/L (96-108); Globulin 2.9 gm/dL (2.2-3.7); Glomerular Filtration Rate 102; Glucose 99 mg/dL (70-105)
[2020-08-20 08:25] LABS: Eosinophils % (Manual) 3 % (0-7); Hemoglobin 13.4 g/dL (13.5-16.5); Lymphocytes % 4 % (15-49); Mean Cell Volume 88.9 fL (80.0-100.0); Mean Corpuscular HGB Conc 32.7 g/dL (31.0-36.0); Mean Platelet Volume 10.2 fL (7.4-10.4); Metamyelocytes % 1 %; Monocytes % (Manual) 5 % (1-12); Myelocytes % 2 %; Platelet Count 294 K/mcL (140-440); Platelet Estimate NORMAL (Normal); RBC 4.61 M/mcL (4.50-5.90); RBC Morphology NORMAL (Normal); Segmented Neutrophils % 85 % (38-78); WBC 19.4 K/mcL (4.5-11.0)
[2020-08-20] MEDS: LEVOFLOXACIN 500 MG TABLET PO SCH (09:07)
[2020-08-20] MEDS: DEXAMETHASONE 4 MG TABLET PO SCH (09:07)
[2020-08-20] MEDS: POLYETHYLENE GLYCOL 3350 17 GM PACKET PO SCH (09:07)
[2020-08-20] MEDS: ENOXAPARIN 40 MG/0.4 ML SYRINGE SQ SCH (09:08)
[2020-08-20] MEDS: DOCUSATE SODIUM 100 MG CAPSULE PO SCH ×2 (09:08→21:33)
[2020-08-20] MEDS: LORazepam 2 MG/ML VIAL IV PRN ×4 (09:08→18:58)
[2020-08-20] MEDS ORDERED: QUEtiapine 25 MG TABLET PO SCH (09:20)
[2020-08-20] MEDS ORDERED: QUEtiapine 25 MG TABLET PO ONE (10:15)
--- NOTE | 2020-08-20 11:20 | Internal Med Progress Note ---
SUBJECTIVE Subjective Patient information: Note initiated : 08/20/20 at 11:12 am Service Date, if different from initiated Date: [] Patient: Kailash Ma 50 y/o M admitted on 08/18/20 for Shortness of breath. Chief Complaint: [encephalopathy] Interval history: 50 year old male with a history of metastatic melanoma, hypertension, presents to the ED for encephalopathy initially felt to be secondary to recent increase in opioids for cancer pain (fentanyl patch) and dyspnea probably secondary to a right pleural effusion for which 1.7 liters was removed in the ED. The patient has a new oxygen requirement, he was recently diagnosed with pneumonia at [facility], currently on levofloxacin. Admitting with decreased opioids and monitoring of respiratory status. COVID PCR not detected. 08/18-Improved cognition but not at baseline, potassium 5.3, still looks dry so will give another NS bolus. MRI brain w and s/o contrast ordered. Repeat po tassium in afternoon. 08/19-MRI brain showed numerous lesions consistent with metastatic melanoma, discussed with the patient's oncologist today with the patient's present. Unfortunately there is nothing more to offer the patient at this point except end of life care. Exploring hospice options with case management assistance. 08/20-agitated this morning when family present, wants to leave the hospital, still encephalopathic and does not have capacity. Trial of low dose Seroquel added. Discussed transition for full comfort cares, looking into home hospice as an option for end of life care. Constitutional Vitals: Vital Signs Temp Pulse Resp BP Pulse Ox 97.9 F 136 H 16 125/80 92 08/20/20 08:00 08/20/20 08:00 08/20/20 08:00 08/20/20 08:00 08/20/20 08:00 Period Temp Pulse Resp BP Sys/Edmonds Pulse Ox Last 24 Hr 97.5 F-99.3 F 98-136 16-18 118-138/76-89 91-94 Intake and Output 08/19/20 08/20/20 08/20/20 21:59 05:59 13:59 Intake Total 100 200 Output Total 50 Balance 100 150 Weight 86.545 kg Intake & Output: Intake & Output 08/19/20 08/20/20 08/20/20 21:59 05:59 13:59 Intake Total 100 200 Output Total 50 Balance 100 150 Weight 86.545 kg Intake: Oral 100 200 Output: Void Amount 50 Other: Urine Appearance Clear Urine Color Dark Yellow # Voids 1 Head Head exam: Present atraumatic and normal inspection Eye Eye exam: Present normal appearance; Absent scleral icterus Neck Neck exam: Present full ROM Respiratory Respiratory exam: Absent accessory muscle use and respiratory distress Cardiovascular Cardiovascular exam: Present normal rate and rhythm GI/Abdominal GI/Abdominal exam: Present distended and tenderness Extremities Exam Extremities exam: Present full ROM and normal inspection Neurological Exam Neurological exam: Present altered; Absent motor sensory deficit Psychiatric Psychiatric exam: Present agitated and anxious Skin Skin exam: Present normal color and warm OBJ DATA Labs CBC & Chem 7: 08/20/20 05:27 08/20/20 05:27 Labs: Abnormal Lab Results 08/20/20 08/20/20 08/19/20 05:27 05:27 07:21 WBC 19.4 H RBC Hgb 13.4 L Hct Plt Count Neut % (Auto) Lymph % (Auto) Lymph # (Auto) [place] # (Auto) Seg Neutrophils % 85 H Lymphocytes % 4 L Absolute Neutrophils D-Dimer Potassium Chloride Carbon Dioxide 21 L Anion Gap BUN 25 H Glucose 112 H Calcium 7.4 L 7.4 L Magnesium Alkaline Phosphatase 208 H 157 H Lactate Dehydrogenase Total Protein 5.7 L 5.5 L Albumin 2.8 L 2.7 L Albumin/Globulin Ratio Ur Specific [place] Urine Protein Urine Ketones Urine Occult Blood Urine Urobilinogen Urine RBC Urine Mucus 08/19/20 08/18/20 08/18/20 07:21 06:11 06:11 WBC 19.7 H RBC 4.36 L Hgb 12.8 L Hct 39.7 L Plt Count Neut % (Auto) Lymph % (Auto) Lymph # (Auto) [place] # (Auto) Seg Neutrophils % 90 H Lymphocytes % 4 L Absolute Neutrophils D-Dimer Potassium 5.2 H 5.3 H Chloride Carbon Dioxide 21 L Anion Gap BUN 35 H Glucose 152 H Calcium 7.4 L Magnesium Alkaline Phosphatase 140 H Lactate Dehydrogenase Total Protein Albumin 2.7 L Albumin/Globulin Ratio 0.8 L Ur Specific [place] Urine Protein Urine Ketones Urine Occult Blood Urine Urobilinogen Urine RBC Urine Mucus 08/18/20 08/18/20 08/17/20 06:11 04:30 17:40 WBC 20.7 H RBC Hgb Hct Plt Count Neut % (Auto) Lymph % (Auto) Lymph # (Auto) [place] # (Auto) Seg Neutrophils % 90 H Lymphocytes % 4 L Absolute Neutrophils D-Dimer Potassium Chloride Carbon Dioxide Anion Gap BUN Glucose Calcium Magnesium Alkaline Phosphatase Lactate Dehydrogenase 957 H Total Protein Albumin Albumin/Globulin Ratio Ur Specific [place] > 1.060 H Urine Protein 30 A Urine Ketones 5 A Urine Occult Blood >=1.0 A Urine Urobilinogen 4.0 A Urine RBC > 182 H Urine Mucus Few A 08/17/20 08/17/20 08/17/20 14:43 14:43 14:43 WBC 29.4 H RBC Hgb Hct Plt Count 441 H Neut % (Auto) 89.0 H Lymph % (Auto) 2.8 L Lymph # (Auto) 0.81 L [place] # (Auto) 2.15 H Seg Neutrophils % Lymphocytes % Absolute Neutrophils 26.14 H D-Dimer 6.69 H Potassium Chloride 95 L Carbon Dioxide 20 L Anion Gap 18.0 H BUN 32 H Glucose 124 H Calcium 8.0 L Magnesium 2.8 H Alkaline Phosphatase 141 H Lactate Dehydrogenase Total Protein Albumin 3.1 L Albumin/Globulin Ratio 0.9 L Ur Specific [place] Urine Protein Urine Ketones Urine Occult Blood Urine Urobilinogen Urine RBC Urine Mucus Meds: Medications Dexamethasone (Decadron) 2 mg PO DAILY [facility] Last Admin: 08/20/20 09:07 Dose: 2 mg Documented by: Docusate Sodium (Colace) 100 mg PO BID [facility] Last Admin: 08/20/20 09:08 Dose: 100 mg Documented by: Fentanyl (Duragesic) 25 mcg TOPICAL Q72H [facility] Last Admin: 08/19/20 10:52 Dose: 25 mcg Documented by: Hydromorphone HCl (Dilaudid) 0.5 mg IV Q2HP PRN; Protocol PRN Reason: Per Pain Protocol Last Admin: 08/20/20 09:59 Dose: 0.5 mg Documented by: Acetaminophen (Ofirmev) 650 mg in 65 mls @ 130 mls/hr IV Q6HP PRN; Protocol PRN Reason: PAIN/FEVER > 101 Last Infusion: 08/19/20 09:13 Dose: Infused Documented by: Levofloxacin (Levaquin) 500 mg PO DAILY [facility]; Protocol Last Admin: 08/20/20 09:07 Dose: 500 mg Documented by: Lorazepam (Ativan) 0.5 mg IV Q2HP PRN PRN Reason: ANXIETY/SEDATION Last Admin: 08/20/20 09:08 Dose: 0.5 mg Documented by: Ondansetron HCl (Zofran) 4 mg IV Q6HP PRN PRN Reason: Nausea And Vomiting Polyethylene Glycol (Miralax) 17 gm PO DAILY [facility] Last Admin: 08/20/20 09:07 Dose: 17 gm Documented by: Quetiapine Fumarate (Seroquel) 25 mg PO DAILY [facility] Senna (Senokot) 2 tab PO HS [facility] Last Admin: 08/19/20 21:36 Dose: Not Given Documented by: Sodium Chloride (Saline Flush) 10 ml IV Q8 [facility] Last Admin: 08/20/20 05:14 Dose: 10 ml Documented by: A/P Narrative A/P Narrative: Assessment: 50 year old male with a history of metastatic melanoma, hypertension, presents to the ED for encephalopathy initially felt to be secondary to recent increase in opioids for cancer pain (fentanyl patch) but later found to have diffuse metastates to brain which are the likely cause of encephalopathy. Also found to have a right pleural effusion, 1.7 liters was removed in the ED. The patient has a new oxygen requirement, he was recently diagnosed with pneumonia at [facility], currently on levofloxacin. COVID PCR not detected. #Metastatic melanoma #Diffuse brain metastasis #Encephalopathy #Agitation #Abdominal pain secondary to metastatic disease Has received immunotherapy and biologic therapy provided by his oncologist in [place]. Reviewed the MRI results with his oncologist who feels the patient's condition is terminal and recommends end of life care, soocial services assisting with exploring hospice discharge options. Probably home with hospice. Continue ativan prn for agitation, dilaudid IV prn for pain, added trial of seroquel PO for agitation. Family considering transition to full comfort cares. #Acute hypoxic respiratory failure - unchanged oxygen requirement, probably secondary to pneumonia pneumonia, no evidence of PE on CTA chest. Drained 1.7 liters of pleural effusion in the ED, follow workup. Incentive spirometry, oxygen supplementation as needed. #Pneumonia - Continue home levofloxacin. Nasal MRSA screen was negative. #Hypertension - Home home Coreg for now. #Metastatic melanoma - This is the patient's most serious medical problem by far, currently managed by an oncology group in [place] and treated with biologic chemotherapy. Continuing home dexamethasone 2 mg daily. #DVT prophylaxis - Lovenox SQ. #Code status - DNR/DNI. Time Spent With Patient Time: Total time spent is greater than 50% in coordination of care (as documented) at patient's floor/unit and/or counseling patient: Total time spent with greater than 50% in coordination of care (as documented) at patient's floor/unit and/or counseling patient:: 15 - 24 minutes QUALITY VTE Deep Vein Thrombosis/Pulmonary Embolism Present on Admission: No
[2020-08-20] MEDS: ACETAMINOPHEN 650 MG/65 ML BAG IV PRN (18:57)
[2020-08-20] MEDS: SENNOSIDES 1 TABLET PO SCH (21:33)
[2020-08-21] MEDS: LORazepam 2 MG/ML VIAL IV PRN ×4 (00:02→17:27)
[2020-08-21] MEDS: HYDROmorphone 0.5 MG/0.5 ML SYRINGE IV PRN ×3 (01:09→09:55)
[2020-08-21] MEDS: 0.9 % SODIUM CHLORIDE 10 ML SYRINGE IV SCH (05:16)
[2020-08-21] MEDS ORDERED: QUEtiapine 25 MG TABLET PO SCH (09:00)
[2020-08-21] MEDS ORDERED: ALBUTEROL SULFATE 2.5 MG/3 ML NEBULIZER NEB PRN (10:02)
[2020-08-21] MEDS ORDERED: ONDANSETRON 4 MG ODT TABLET SL PRN (10:02)
[2020-08-21] MEDS ORDERED: HYDROmorphone PCA 30 MG/30 ML PCA.VIAL IV PRN (10:04)
[2020-08-21] MEDS: POLYETHYLENE GLYCOL 3350 17 GM PACKET PO SCH (10:14)
[2020-08-21] MEDS: LEVOFLOXACIN 500 MG TABLET PO SCH (10:14)
[2020-08-21] MEDS: DOCUSATE SODIUM 100 MG CAPSULE PO SCH (10:14)
[2020-08-21] MEDS: DEXAMETHASONE 4 MG TABLET PO SCH (10:14)
[2020-08-21] MEDS: HYDROmorphone 1 MG/ML SYRINGE IV PRN ×3 (12:05→14:49)
--- NOTE | 2020-08-21 12:21 | Internal Med Progress Note ---
SUBJECTIVE Subjective Patient information: Note initiated : 08/21/20 at 12:20 pm Service Date, if different from initiated Date: [] Patient: Kailash Ma 50 y/o M admitted on 08/18/20 for Shortness of breath. Chief Complaint: [] Interval history: 50 year old male with a history of metastatic melanoma, hypertension, presents to the ED for encephalopathy initially felt to be secondary to recent increase in opioids for cancer pain (fentanyl patch) and dyspnea probably secondary to a right pleural effusion for which 1.7 liters was removed in the ED. The patient has a new oxygen requirement, he was recently diagnosed with pneumonia at [facility], currently on levofloxacin. Admitting with decreased opioids and monitoring of respiratory status. COVID PCR not detected. 08/18-Improved cognition but not at baseline, potassium 5.3, still looks dry so will give another NS bolus. MRI brain w and s/o contrast ordered. Repeat potassium in afternoon. 08/19-MRI brain showed numerous lesions consistent with metastatic melanoma, discussed with the patient's oncologist today with the patient's present. Unfortunately there is nothing more to offer the patient at this point except end of life care. Exploring hospice options with case management assistance. 08/20-agitated this morning when family present, wants to leave the hospital, the patient is encephalopathic and does not have capacity. Discussed transition for full comfort cares, looking into home hospice as an option for end of life care. 08/21-comfort cares started, will probably stay at [facility] for end of life care. Constitutional Vitals: Vital Signs Temp Pulse Resp BP Pulse Ox 102.8 F H 153 H 20 122/77 90 08/21/20 08:00 08/21/20 08:00 08/21/20 08:00 08/21/20 08:00 08/21/20 08:00 Period Temp Pulse Resp BP Sys/Edmonds Pulse Ox Last 24 Hr 98 F-102.8 F 120-215 17-90 122-140/76-94 90-91 Intake and Output 08/20/20 08/21/20 08/21/20 21:59 05:59 13:59 Intake Total 65 Output Total 1 1 Balance 64 -1 Weight 86.545 kg Intake & Output: Intake & Output 08/20/20 08/21/20 08/21/20 21:59 05:59 13:59 Intake Total 65 Output Total 1 1 Balance 64 -1 Weight 86.545 kg Intake: IV 65 Output: # of times incontinent of urine 1 1 Head Head exam: Present atraumatic and normal inspection Eye Eye exam: Present normal appearance ENT ENT exam: Present mucous membranes moist, normal exam and normal external ear exam Neck Neck exam: Present normal inspection Respiratory Respiratory exam: Present accessory muscle use and respiratory distress Cardiovascular Cardiovascular exam: Present tachycardia GI/Abdominal GI/Abdominal exam: Present normal bowel sounds Back Exam Back exam: Present normal inspection Neurological Exam Neurological exam: Present alert and oriented X3 Psychiatric Psychiatric exam: Present anxious Skin Skin exam: Present intact and warm OBJ DATA Labs CBC & Chem 7: 08/20/20 05:27 08/20/20 05:27 Labs: Abnormal Lab Results 08/20/20 08/20/20 08/19/20 05:27 05:27 07:21 WBC 19.4 H RBC Hgb 13.4 L Hct Seg Neutrophils % 85 H Lymphocytes % 4 L Potassium Carbon Dioxide 21 L BUN 25 H Glucose 112 H Calcium 7.4 L 7.4 L Alkaline Phosphatase 208 H 157 H Total Protein 5.7 L 5.5 L Albumin 2.8 L 2.7 L 08/19/20 08/18/20 07:21 06:11 WBC 19.7 H RBC 4.36 L Hgb 12.8 L Hct 39.7 L Seg Neutrophils % 90 H Lymphocytes % 4 L Potassium 5.2 H Carbon Dioxide BUN Glucose Calcium Alkaline Phosphatase Total Protein Albumin Meds: Medications Albuterol Sulfate (Ventolin) 2.5 mg NEB Q2HP PRN PRN Reason: Shortness Of Breath Hydromorphone HCl (Dilaudid) 0 mg IV Q2HP PRN; Protocol PRN Reason: Per Pain Protocol Lorazepam (Ativan) 0 mg IV Q1HP PRN; Protocol PRN Reason: ANXIETY/SEDATION Last Admin: 08/21/20 12:08 Dose: 1 mg Documented by: Ondansetron HCl (Zofran) 4 mg IV Q6HP PRN PRN Reason: Nausea And Vomiting Ondansetron HCl (Zofran Odt) 4 mg SL Q4HP PRN; Protocol PRN Reason: Nausea And Vomiting Sodium Chloride (Saline Flush) 10 ml IV Q8 [facility] Last Admin: 08/21/20 12:08 Dose: 10 ml Documented by: A/P Narrative A/P Narrative: Assessment: 50 year old male with a history of metastatic melanoma, hypertension, presents to the ED for encephalopathy initially felt to be secondary to recent increase in opioids for cancer pain (fentanyl patch) but later found to have diffuse metastates to brain which are the likely cause of encephalopathy. Also found to have a right pleural effusion, 1.7 liters was removed in the ED. The patient had a new oxygen requirement, he was recently diagnosed with pneumonia at [facility]-treated with levofloxacin until comfort care started. COVID PCR not detected. After discussion of MRI brain findings with oncology family decided to transition to comfort cares. #End of life care #Metastatic melanoma #Diffuse brain metastasis #Encephalopathy Started full comfort cares, discontinued all non-comfort treatments. #Acute hypoxic respiratory failure #Pneumonia Discontinued Levofloxacin when comfort care started. #Metastatic melanoma - This is the patient's most serious medical problem by far, currently managed by an oncology group in [place]. Discussed the MRI brain findings with his oncologist-no further treatment options, recommended end of life care. #Code status - DNR/DNI. Time Spent With Patient Time: Total time spent is greater than 50% in coordination of care (as documented) at patient's floor/unit and/or counseling patient: Total time spent with greater than 50% in coordination of care (as documented) at patient's floor/unit and/or counseling patient:: 25 - 35 minutes QUALITY VTE Deep Vein Thrombosis/Pulmonary Embolism Present on Admission: No
[2020-08-21] MEDS ORDERED: 0.9 % SODIUM CHLORIDE 10 ML SYRINGE IV SCH (14:00)
--- NOTE | 2020-08-21 18:36 | Death Note ---
Discharge Sum: Prov Provider Patient information: Note initiated : 08/21/20 at 6:31 pm Service Date, if different from initiated Date: [] Patient: Kailash Ma 50 y/o M admitted on 08/18/20 for Shortness of breath. Chief Complaint: [encephalpathy ] Primary care physician: PCP No Consults: 08/17/20 Consult to Physician [CONS] Stat Comment: Consulting Provider: Philip Faustin Reason For Exam: Physician to Consult Discharge Sum: Summary Date and Time Date of admission: 08/18/20 00:32 Summary Details: Kailash Ma was 50 year old male with a history of metastatic melanoma, hypertension, who presents to the ED for encephalopathy initially felt to be secondary to recent increase in opioids for cancer pain (fentanyl patch) and dyspnea probably secondary to a right pleural effusion (1.7 liters was removed in the ED) and pneumonia diagnosed in the recent days. The patient was admitted for further workup which included an MRI brain due to concern of brain metastasis. The MRI brain showed diffuse metastatic disease which was felt to be causing the encephalopathy. The MRI brain findings were discussed with the patient[place] onc[place] He recommended end of life care as further treatments would be futile. The patient was transitioned to comfort cares and end of life care provided at the hospital. The patient in the evening of 08/21/2020. Additional Data Confirmation of as documented by pronouncing clinician: no pulse and no respirations Family: at bedside Attending/PCP notified?: Yes Attending physician: Philip Faustin MD
--- NOTE | 2020-08-23 11:41 | Non-GYN Cytology Report ---
Non Procurement Clerk Cytology NG Diagnosis PLEURAL FLUID, THORACENTESIS: -- ATYPICAL CELLS IDENTIFIED, CANNOT EXCLUDE INVOLVEMENT BY METASTATIC MELANOMA. (EBD:sln) NG Comments The patient's history of metastatic melanoma is noted. Rare, single atypical cells are identified and involvement by metastatic melanoma cannot be entirely excluded. NG Micro Description Cytologic preparations of one ThinPrep slide, one H/E stained cytospin slide, one Diff Quik stained cytospin slide, one Castillo Giemsa stained cytospin slide and two cell block preparations are reviewed. Each is technically adequate. Preparations show rare atypical cells in a background of scattered single mesothelial cells and fibrin blood clot. Immunohistochemical studies are performed with adequate technical controls. Cells of interest: Malignant cells. Melan A: Negative. SOX10: Rare positive cells. CD68: Highlights histiocytes. WT1: Rare positive mesothelial cells. Interpretation: Atypical cells present. (EBD:sln) NG Gross Description Received 1100 mL yellow cloudy fluid. IHC Disclaimer Some of the tests reported may not have been cleared or approved by the U.S. Food Drug Administration (FDA). However, the FDA has determined that such clearance or approval is not necessary. Pursuant to the requirements of CLIA, this laboratory has established and verified the accuracy and precision of all tests, and additional information about these tests is available upon request. All technical controls are adequate. Electronically Signed Tania May MD, FCAP Electronically Signed 08/23/2020 11:24 AM
== END 2020-08-21 20:35 | disposition expired | DRG 54 ==
LOC: ED 14:09 → MEDSUR 08-18 00:32
PROVIDERS: ADMIT Internal Medicine; ATTEND Internal Medicine